=== PATIENT | male | born 1945 | race Asian ===

== ENCOUNTER 2017-06-23 18:23 | Emergency (ER) | payer OTHER ==
[~2017-06-23] VITALS: Ht 160 cm; Wt 39.6 kg
[2017-06-23 18:33] VITALS: BP 91/46; PULSE 76; RESP 16; TEMP 98; O2SAT 94
[2017-06-23] MEDS ORDERED: PHEN-426 PO (18:54)
[2017-06-23] MEDS ORDERED: CIPR-9 PO (18:54)
[2017-06-23] MEDS ORDERED: HYDR-3583 PO (18:54)
--- NOTE | 2017-06-23 19:18 | PD ---
HPI Chief Complaint: Fever Time Seen by Provider: 19:08 Travel History International Travel<30 days: No Contact w/Intl Traveler<30days: No Traveled to known affect area: No History of Present Illness HPI The patient is a 71-year-old [place] male that had prostate surgery 3 days ago. He has a Cardona catheter in place. Yesterday, according to the suture polisher with him, he had a fever of 103 at home. He denies any nausea or vomiting. He does have some slight suprapubic discomfort but otherwise no abdominal pain. He has no cough, chest pain or shortness of breath. The patient is already taking Cipro. PFSH Past Medical History Tetanus Vaccination: Unknown Influenza Vaccination: No Past Surgical History Other Surgery: Yes (enlarged prostate surgery) Social History Alcohol Use: No Tobacco Use: No Substance Use: No Allergies-Medications (Allergen,Severity, Reaction): Coded Allergies: Penicillins (Verified Allergy, Intermediate, SYNCOPE, 06/23/17) Reported Meds & Prescriptions Reported Meds & Active Scripts Active Reported Cipro (Ciprofloxacin HCl) 500 Mg Tab 500 Mg PO BID Phenazopyridine (Phenazopyridine HCl) 100 Mg Tab 100 Mg PO Q8HR Hydrocodone-Acetaminophen 10-325 mg Tab 1 Tab PO Q6H PRN Review of Systems ROS Limitations: Language Barrier Except as stated in HPI: all other systems reviewed are Neg Physical Exam Narrative GENERAL: The patient is alert, oriented 3 in slight apparent distress with his slight suprapubic discomfort. His vital signs show blood pressure 91/46 but otherwise normal. SKIN: Focused skin assessment warm/dry. HEAD: Atraumatic. Normocephalic. EYES: Pupils equal and round. No scleral icterus. No injection or drainage. ENT: No nasal bleeding or discharge. Mucous membranes pink and moist. NECK: Trachea midline. No JVD. CARDIOVASCULAR: Regular rate and rhythm. No murmur appreciated. RESPIRATORY: No accessory muscle use. Clear to auscultation. Breath sounds equal bilaterally. GASTROINTESTINAL: Abdomen soft, non-tender, nondistended. Hepatic and splenic margins not palpable. MUSCULOSKELETAL: No obvious deformities. No clubbing. No cyanosis. No edema. NEUROLOGICAL: Awake and alert. No obvious cranial nerve deficits. Motor grossly within normal limits. Normal speech. PSYCHIATRIC: Appropriate mood and affect; insight and judgment normal. Data Data Last Documented VS Vital Signs Date Time Temp Pulse Resp B/P (MAP) Pulse Ox O2 Delivery O2 Flow Rate FiO2 06/23/17 20:14 70 14 102/53 (69) 100 Room Air 06/23/17 18:33 98.0 Orders Orders Complete Blood Count With Diff (06/23/17 19:09) Urinalysis - C+S If Indicated (06/23/17 19:09) Sodium Chlor 0.9% 1000 Ml Inj (Ns 1000 M (06/23/17 19:30) Ondansetron Inj (Zofran Inj) (06/23/17 21:45) Labs Laboratory Tests Test 06/23/17 19:50 White Blood Count 11.4 TH/MM3 Red Blood Count 4.64 MIL/MM3 Hemoglobin 13.7 GM/DL Hematocrit 40.8 % Mean Corpuscular Volume 88.1 FL Mean Corpuscular Hemoglobin 29.6 PG Mean Corpuscular Hemoglobin Concent 33.6 % Red Cell Distribution Width 13.1 % Platelet Count 269 TH/MM3 Mean Platelet Volume 8.3 FL Neutrophils (%) (Auto) 75.8 % Lymphocytes (%) (Auto) 9.4 % Monocytes (%) (Auto) 8.0 % Eosinophils (%) (Auto) 2.5 % Basophils (%) (Auto) 4.3 % Neutrophils # (Auto) 8.6 TH/MM3 Lymphocytes # (Auto) 1.1 TH/MM3 Monocytes # (Auto) 0.9 TH/MM3 Eosinophils # (Auto) 0.3 TH/MM3 Basophils # (Auto) 0.5 TH/MM3 CBC Comment DIFF FINAL Differential Comment Urine Color YELLOW Urine Turbidity CLEAR Urine pH 7.0 Urine Specific [place] 1.005 Urine Protein TRACE mg/dL Urine Glucose (UA) NEG mg/dL Urine Ketones NEG mg/dL Urine Occult Blood LARGE Urine Nitrite NEG Urine Bilirubin NEG Urine Leukocyte Esterase MOD Urine RBC 4-9 /hpf Urine WBC 0-2 /hpf Urine Squamous Epithelial Cells 0-5 /hpf Microscopic Urinalysis Comment CULT NOT INDICATED MDM Medical Decision Making Medical Screen Exam Complete: Yes Emergency Medical Condition: Yes Medical Record Reviewed: Yes Interpretation(s) The CBC is normal except for a minimal elevation of the white count at 11,400. The urine shows trace protein, large blood, 4-9 red cells and moderate leukocyte esterase but is otherwise normal and culture is not indicated. Differential Diagnosis Urinary tract infection, sepsis, electrolyte disorder, dehydration Narrative Course The patient appears to be on the correct drug at this time day Cipro. There is no evidence of a urinary infection despite the indwelling Cardona catheter and there is no fever recorded here and there is no significant leukocytosis. Plan: The patient will continue taking the Cipro. He is given a prescription for Zofran for his nausea. He is to follow-up with the urologist. Physician Communication Physician Communication Nausea Diagnosis Primary Impression: Nausea alone Additional Instructions: As we discussed, follow-up with the urologist. We will give him some nausea medicine to take along with the Cipro. Med/Other Pt SpecificInfo: Prescription(s) given Scripts Ondansetron (Zofran) 4 Mg Tab 4 MG PO Q12HR Y for NAUSEA OR VOMITING, #20 TAB 0 Refills Prov: Panda Park MD 06/23/17 Disposition: 01 DISCHARGE HOME Condition: Stable Panda Park MD Jun 23, 2017 19:18
[2017-06-23] MEDS ORDERED: SODIUM CHLOR 0.9% 1000 ML INJ 1,000 ML IV SCH (19:30)
[2017-06-23 20:04] LABS: AUTOMATED NEUTROPHIL # 8.6 TH/MM3 (1.8-7.7); BASOPHIL # 0.5 TH/MM3 (0-0.2); BASOPHIL % 4.3 % (0.0-2.0); BLOOD, URINE LARGE (NEG); EOSINOPHIL # 0.3 TH/MM3 (0-0.4); EOSINOPHIL % 2.5 % (0.0-4.0); GLUCOSE,URINE NEG (NEG); HEMATOCRIT 40.8 % (39.0-51.0); KETONE, URINE NEG (NEG); LYMPH % 9.4 % (9.0-44.0); LYMPHOCYTE # 1.1 TH/MM3 (1.0-4.8); MEAN CELL VOLUME 88.1 FL (80.0-100.0); MEAN CORPUSCULAR HEMOGLOBIN 29.6 PG (27.0-34.0); MEAN CORPUSCULAR HGB CONC 33.6 % (32.0-36.0); NEUT % 75.8 % (16.0-70.0); NITRITE,URINE NEG (NEG); PLATELET COUNT 269 TH/MM3 (150-450); RED BLOOD COUNT 4.64 MIL/MM3 (4.50-5.90); RED CELL DISTRIBUTION WIDTH 13.1 % (11.6-17.2); WHITE BLOOD COUNT 11.4 TH/MM3 (4.0-11.0)
[2017-06-23 20:10] LABS: URINE COLOR YELLOW (YELLW/STRAW)
[2017-06-23 20:11] LABS: COMMENT (UR) CULT NOT INDICATED; CULTURE IF INDICATED CULT NOT INDICATED; SQUAMOUS EPITHELIAL CELL URINE 0-5 /hpf (0-5); WBC, URINE 0-2 /hpf (0-5)
[2017-06-23 20:12] LABS: HEMO FLAGS DIFF FINAL
[2017-06-23 20:14] VITALS: BP 102/53; PULSE 70; RESP 14; O2SAT 100
[2017-06-23] MEDS ORDERED: ZOFR4TAB PO (21:44)
[2017-06-23] MEDS ORDERED: ONDANSETRON HCL 4 MG/2 ML VIAL IV ONE (21:45)
[2017-06-23 21:50] VITALS: BP 116/56; TEMP 97.7
== END 2017-06-23 21:58 | disposition home or self-care (01) ==
LOC: PHED 18:23
DX: R11.0 Nausea (principal)
CPT/HCPCS: 81001; 85025; 96360; 96361; 99284; J7030